=== PATIENT | female | born 2005 | race Asian ===

== ENCOUNTER 2025-03-19 11:58 | Inpatient (IN) | payer BC ==
[~2025-03-19] VITALS: Ht 157.5 cm; Wt 42.9 kg
[2025-03-19 16:27] VITALS: BP 102/69; PULSE 75; RESP 17; TEMP 98.6
[2025-03-19 20:42] VITALS: BP 102/69; PULSE 75; RESP 17; TEMP 98.6; O2SAT 97
[2025-03-20 08:46] VITALS: BP 98/66; PULSE 87; RESP 16; TEMP 98.2; O2SAT 100
[2025-03-20 09:37] LABS: ASPARTATE AMINOTRANSFERASE 22 U/L (15-37); CALCIUM, TOTAL 9.0 mg/dL (8.8-10.5); CHOL/HDL RATIO 2.4 (3.9-5.7); CREATININE 0.73 mg/dL (0.60-1.30); GLOMERULAR FILTR. RATE CALC > 60 mL/min (>60); GLUCOSE,RANDOM 87 mg/dL (70-110); HCG,QUANTITATIVE < 1 mIU/mL (0-6); LDL CHOL (CALC.) 52 mg/dL (0-130); SODIUM SERUM 139 mmol/L (136-145); TOTAL PROTEIN, SERUM 6.8 g/dL (6.4-8.2); UREA NITROGEN, BLOOD 14 mg/dL (7-18)
[2025-03-20] MEDS ORDERED: ALBUTEROL SULFATE HFA 90 MCG/PUFF 8 GM INHALER IH PRN (13:00)
[2025-03-20] MEDS ORDERED: ONDANSETRON 4 MG TABLET PO PRN (13:00)
[2025-03-20] MEDS ORDERED: NICOTINE 14 MG/24 HOUR PATCH TD PRN (13:00)
[2025-03-20] MEDS ORDERED: ACETAMINOPHEN 325 MG TABLET PO PRN (13:00)
[2025-03-20] MEDS ORDERED: LOPERAMIDE HCL 2 MG CAPSULE PO PRN (13:00)
[2025-03-20] MEDS ORDERED: PETROLATUM,WHITE 28 GM JELLY TP PRN (13:00)
[2025-03-20] MEDS ORDERED: MAGNESIUM HYDROXIDE SUSPENSION 30 ML UDCUP PO PRN (13:00)
[2025-03-20] MEDS ORDERED: MAG HYDROX/ALUMINUM HYD/SIMETH ES 30 ML SUSPENSION UDCUP PO PRN (13:00)
[2025-03-20] MEDS ORDERED: DOCUSATE SODIUM 100 MG CAPSULE PO PRN (13:00)
[2025-03-20] MEDS ORDERED: GuaiFENesin/D-METHORPHAN [SUGAR-FREE] 200-20MG/10 ML SYRUP UDCUP PO PRN (13:00)
[2025-03-20 20:11] VITALS: BP 103/79; PULSE 68; RESP 16; TEMP 98; O2SAT 100
[2025-03-21 08:32] VITALS: BP 101/72; PULSE 69; RESP 16; TEMP 97.1; O2SAT 99
[2025-03-21 09:06] LABS: PLATELET COUNT (AUTO) 277 K/uL (150-450); RED BLOOD CELL COUNT(AUTO) 4.65 MIL/uL (4.00-5.20); RED CELL DISTRIBUTION WIDTH 12.9 % (11.5-14.5); WHITE BLOOD COUNT (AUTO) 7.0 K/uL (4.5-11.0)
[2025-03-21 09:37] LABS: CHOL/HDL RATIO 2.4 (3.9-5.7); LDL CHOL (CALC.) 46.0 mg/dL (0-130)
[2025-03-21 20:07] VITALS: BP 109/68; PULSE 80; RESP 17; TEMP 98.1; O2SAT 99
[2025-03-21] MEDS: ZOLPIDEM TARTRATE 10 MG TABLET PO PRN (20:47)
[2025-03-22 08:32] VITALS: BP 94/62; PULSE 80; RESP 18; TEMP 98.8; O2SAT 98
[2025-03-22 21:30] VITALS: BP 104/70; PULSE 62; RESP 18; TEMP 97; O2SAT 100
[2025-03-23 08:09] VITALS: BP 93/67; PULSE 72; RESP 16; TEMP 97.7; O2SAT 100
[2025-03-23 20:12] VITALS: BP 108/79; PULSE 65; RESP 18; TEMP 98; O2SAT 99
[2025-03-24 08:54] VITALS: BP 95/68; PULSE 67; RESP 18; TEMP 98.2; O2SAT 99
[2025-03-24 20:05] VITALS: BP 117/84; PULSE 67; RESP 18; TEMP 98.4
[2025-03-25 08:09] VITALS: BP 99/80; PULSE 69; RESP 16; TEMP 98.1; O2SAT 99
[2025-03-25 20:20] VITALS: BP 103/83; PULSE 73; RESP 18; TEMP 97.6; O2SAT 100
[2025-03-26 08:43] VITALS: BP 107/68; PULSE 86; RESP 17; TEMP 98.6; O2SAT 97
[2025-03-26 20:10] VITALS: BP 104/81; PULSE 73; RESP 17; TEMP 98.2; O2SAT 97
[2025-03-27 08:58] VITALS: BP 96/68; PULSE 97; RESP 17; TEMP 98.4; O2SAT 98
[2025-03-27 20:09] VITALS: BP 95/66; PULSE 82; RESP 18; TEMP 98; O2SAT 100
[2025-03-28 08:31] VITALS: BP 102/65; PULSE 81; RESP 18; TEMP 98.1; O2SAT 99
[2025-03-28] MEDS: BACITRACIN 28 GM OINTMENT TP SCH (09:38)
[2025-03-28 10:19] VITALS: RESP 18; O2SAT 99
[2025-03-28] MEDS: IBUPROFEN 400 MG TABLET PO PRN (10:19)
[2025-03-28 11:19] VITALS: RESP 17; O2SAT 99
[2025-03-28] MEDS: LURASIDONE HCL 20 MG TABLET PO SCH (12:49)
[2025-03-28 20:06] VITALS: BP 103/68; PULSE 75; RESP 17; TEMP 97.7; O2SAT 99
[2025-03-29 08:09] VITALS: BP 98/61; PULSE 78; RESP 16; TEMP 97.7; O2SAT 100
[2025-03-29 20:11] VITALS: BP 101/73; PULSE 88; RESP 18; TEMP 98.2; O2SAT 100
[2025-03-30 08:02] VITALS: BP 95/60; PULSE 83; RESP 15; TEMP 98.4; O2SAT 99
[2025-03-30] MEDS: BACITRACIN 28 GM OINTMENT TP SCH (12:13)
[2025-03-30 20:09] VITALS: BP 107/79; PULSE 93; RESP 17; TEMP 97.9; O2SAT 98
[2025-03-31 09:17] VITALS: BP 117/81; PULSE 68; RESP 18; TEMP 98.5; O2SAT 96
[2025-03-31 12:41] VITALS: RESP 18; O2SAT 96
[2025-03-31 13:41] VITALS: RESP 17; O2SAT 96
[2025-03-31 20:13] VITALS: BP 101/64; PULSE 66; RESP 15; TEMP 98.1; O2SAT 98
[2025-04-01 08:25] VITALS: BP 103/70; PULSE 91; RESP 17; TEMP 98.2; O2SAT 99
[2025-04-01 09:52] VITALS: BP 112/81; PULSE 95; RESP 18; TEMP 98; O2SAT 99
[2025-04-01 10:52] VITALS: RESP 18; O2SAT 98
[2025-04-01] MEDS: LURASIDONE HCL 40 MG TABLET PO SCH (16:26)
== END 2025-04-02 04:33 | disposition short-term general hospital (02) | DRG 885 ==
LOC: B2S 15:56
PROVIDERS: ADMIT Psychiatry & Neurology Child & Adolescent Psychiatry; ATTEND Psychiatry & Neurology Child & Adolescent Psychiatry
PROC: GZ56ZZZ Individual Psychotherapy, Supportive (ICD-10-PCS; 2025-03-20)
PROC: GZ58ZZZ Individual Psychotherapy, Cognitive-Behavioral (ICD-10-PCS; 2025-03-20)
PROC: GZ52ZZZ Individual Psychotherapy, Cognitive (ICD-10-PCS; principal; 2025-03-22)
DX: F33.2 Major depressive disorder, recurrent severe without psychotic features (principal); E44.0 Moderate protein-calorie malnutrition; Z68.1 Body mass index [BMI] 19.9 or less, adult; G47.00 Insomnia, unspecified; F12.90 Cannabis use, unspecified, uncomplicated; L02.425 Furuncle of right lower limb; S90.425A Blister (nonthermal), left lesser toe(s), initial encounter; X58.XXXA Exposure to other specified factors, initial encounter; Y93.89 Activity, other specified; Z88.0 Allergy status to penicillin; Y92.89 Other specified places as the place of occurrence of the external cause; Y99.8 Other external cause status
CPT/HCPCS: 80053; 80061; 83036; 84436; 84443; 84702; 85025

== ENCOUNTER 2025-04-01 16:57 | Inpatient (IN) | payer BC ==
[~2025-04-01] VITALS: Ht 154.9 cm; Wt 44.1 kg
[2025-04-01] MEDS ORDERED: SODIUM CHLORIDE 0.9% 1,300 ML IV ONE (19:45)
[2025-04-01 20:03] LABS: PLATELET COUNT (AUTO) 277 K/uL (150-450); RED BLOOD CELL COUNT(AUTO) 4.16 MIL/uL (4.00-5.20); RED CELL DISTRIBUTION WIDTH 13.1 % (11.5-14.5); WHITE BLOOD COUNT (AUTO) 9.4 K/uL (4.5-11.0)
[2025-04-01 20:13] LABS: CALCIUM, TOTAL 8.9 mg/dL (8.8-10.5); CREATININE 0.90 mg/dL (0.60-1.30); GLOMERULAR FILTR. RATE CALC > 60 mL/min (>60); GLUCOSE,RANDOM 100 mg/dL (70-110); SODIUM SERUM 138 mmol/L (136-145); UREA NITROGEN, BLOOD 14 mg/dL (7-18)
[2025-04-01 20:24] LABS: HCG,QUANTITATIVE < 1 mIU/mL (0-6)
[2025-04-01 20:34] LABS: LACTIC ACID 0.8 mmol/L (0.4-2.0)
[2025-04-01] MEDS: VANCOMYCIN HCL 1 GM in DEXTROSE 5%-WATER 250 ML IV ONE (21:42)
[2025-04-01] MEDS: KETOROLAC TROMETHAMINE 30 MG/ML VIAL IVP ONE (23:32)
[2025-04-02 04:19] VITALS: BP 96/67; PULSE 70; RESP 17; TEMP 98.8; O2SAT 98
[2025-04-02 07:49] VITALS: BP 100/66; PULSE 60; RESP 17; TEMP 97.8; O2SAT 100
[2025-04-02] MEDS ORDERED: SODIUM CHLORIDE 0.9% 500 ML IV ONE (10:37)
[2025-04-02] MEDS: MORPHINE SULFATE 4 MG/ML SYRINGE IVP PRN ×3 (10:40→21:34)
[2025-04-02] MEDS ORDERED: MAGNESIUM HYDROXIDE SUSPENSION 30 ML UDCUP PO PRN (11:30)
[2025-04-02] MEDS ORDERED: BISACODYL 10 MG RECTAL RECTAL SUPPOSITORY PR PRN (11:30)
[2025-04-02] MEDS ORDERED: ZOLPIDEM TARTRATE 5 MG TABLET PO PRN (11:30)
[2025-04-02] MEDS ORDERED: ACETAMINOPHEN 325 MG TABLET PO PRN (11:30)
[2025-04-02] MEDS: HYDROCODONE/ACETAMINOPHEN 5-325 MG TABLET PO PRN (12:11)
[2025-04-02] MEDS: LURASIDONE HCL 20 MG TABLET PO SCH (12:12)
[2025-04-02] MEDS: VANCOMYCIN HCL 1.25 GM in DEXTROSE 5%-WATER 250 ML IV ONE (12:13)
[2025-04-02] MEDS: CETIRIZINE HCL 10 MG TABLET PO PRN (15:08)
[2025-04-02] MEDS: ONDANSETRON HCL 4 MG/2 ML VIAL IVP PRN (15:12)
[2025-04-02] MEDS: HEPARIN SODIUM,PORCINE 5,000 UNITS/ML VIAL SQ SCH (15:17)
[2025-04-02 15:46] VITALS: BP 105/78; PULSE 60; RESP 16; TEMP 98.1; O2SAT 100
[2025-04-02 19:21] VITALS: BP 105/70; PULSE 60; RESP 18; TEMP 97.9; O2SAT 97
[2025-04-02] MEDS ORDERED: 0.9% SODIUM CHLORIDE 10 ML SYRINGE IVP ONE (19:56)
[2025-04-02] MEDS ORDERED: SODIUM CHLORIDE 0.9% 100 ML ONE (19:56)
[2025-04-02] MEDS ORDERED: IOHEXOL 300 MG/ML 100 ML VIAL ONE (19:56)
[2025-04-02] MEDS: DOCUSATE SODIUM 100 MG CAPSULE PO SCH (21:00)
[2025-04-02 21:34] VITALS: BP 105/77; PULSE 60; RESP 18; TEMP 97.9; O2SAT 98
[2025-04-02] MEDS: VANCOMYCIN HCL 500 MG in DEXTROSE 5%-WATER 100 ML IV SCH (23:55)
[2025-04-03 05:26] VITALS: BP 110/61; PULSE 67; RESP 18; TEMP 98.1; O2SAT 100
[2025-04-03 07:00] VITALS: BP 97/57; PULSE 59; RESP 19; TEMP 98.1; O2SAT 100
[2025-04-03 07:26] LABS: CALCIUM, TOTAL 8.8 mg/dL (8.8-10.5); CREATININE 0.71 mg/dL (0.60-1.30); GLOMERULAR FILTR. RATE CALC > 60 mL/min (>60); GLUCOSE,RANDOM 93 mg/dL (70-110); SODIUM SERUM 139 mmol/L (136-145); UREA NITROGEN, BLOOD 9 mg/dL (7-18)
[2025-04-03] MEDS: PANTOPRAZOLE SODIUM 40 MG DR TABLET PO SCH (07:48)
[2025-04-03] MEDS ORDERED: NALOXONE HCL 1 MG/ML 2 ML SYRINGE IVP PRN (15:15)
[2025-04-03 15:55] VITALS: BP 109/67; PULSE 57; RESP 18; TEMP 97.5; O2SAT 96
[2025-04-03] MEDS: ACETAMINOPHEN 500 MG TABLET PO SCH (16:00)
[2025-04-03] MEDS: GABAPENTIN 100 MG CAPSULE PO SCH (16:00)
[2025-04-03] MEDS: LIDOCAINE 2% 6 ML JELLY TP SCH (16:19)
[2025-04-03] MEDS: CefTRIAXone 1 GM/DEXTROSE 50 ML IV SCH (16:30)
[2025-04-03 20:00] VITALS: BP 112/81; PULSE 65; RESP 18; TEMP 98.5; O2SAT 100
[2025-04-03] MEDS: MetroNIDAZOLE 500 MG/NACL 100 ML IV SCH (20:15)
[2025-04-03] MEDS: RINGERS SOLUTION,LACTATED 1,000 ML IV SCH (21:36)
[2025-04-04 04:00] VITALS: BP 103/67; PULSE 53; RESP 16; TEMP 97.7; O2SAT 97
[2025-04-04 06:40] LABS: CALCIUM, TOTAL 8.7 mg/dL (8.8-10.5); CREATININE 0.78 mg/dL (0.60-1.30); GLOMERULAR FILTR. RATE CALC > 60 mL/min (>60); GLUCOSE,RANDOM 98 mg/dL (70-110); SODIUM SERUM 140 mmol/L (136-145); UREA NITROGEN, BLOOD 10 mg/dL (7-18)
[2025-04-04 07:47] VITALS: BP 103/65; PULSE 58; RESP 18; TEMP 97.7; O2SAT 98
[2025-04-04] MEDS: LIDOCAINE 5% TRANSDERMAL PATCH TD SCH (09:27)
[2025-04-04 16:21] VITALS: BP 108/72; PULSE 60; RESP 18; TEMP 98.3; O2SAT 99
[2025-04-04] MEDS: VANCOMYCIN HCL 750 MG in DEXTROSE 5%-WATER 250 ML IV SCH (19:53)
[2025-04-04 20:00] VITALS: BP 103/81; PULSE 69; RESP 18; TEMP 98.2; O2SAT 99
[2025-04-04] MEDS: -LIDODERM PATCH NOTE- MISC SCH (20:04)
[2025-04-04 21:18] VITALS: BP 104/84; PULSE 54; RESP 16; TEMP 97.7; O2SAT 100
[2025-04-05 05:02] VITALS: BP 96/56; PULSE 66; RESP 17; TEMP 97.9; O2SAT 97
[2025-04-05 07:56] LABS: CALCIUM, TOTAL 8.7 mg/dL (8.8-10.5); CREATININE 0.71 mg/dL (0.60-1.30); GLOMERULAR FILTR. RATE CALC > 60 mL/min (>60); GLUCOSE,RANDOM 96 mg/dL (70-110); SODIUM SERUM 138 mmol/L (136-145); UREA NITROGEN, BLOOD 7 mg/dL (7-18)
[2025-04-05 08:00] VITALS: BP 96/61; PULSE 59; RESP 19; TEMP 98.1; O2SAT 99
[2025-04-05 08:42] VITALS: BP 98/71; PULSE 85; RESP 18; O2SAT 99
[2025-04-05] MEDS: OxyCODONE HCL/ACETAMINOPHEN 5-325 MG TABLET PO PRN (08:42)
[2025-04-05 15:07] VITALS: BP 111/78; PULSE 61; RESP 19; TEMP 98; O2SAT 99
[2025-04-05 17:30] VITALS: BP 117/67; PULSE 55; RESP 18; O2SAT 97
[2025-04-05 20:31] VITALS: BP 109/68; PULSE 65; RESP 18; TEMP 98.1; O2SAT 98
[2025-04-06] VITALS (7 sets, daily range): BP systolic 101–111; BP diastolic 65–77; PULSE 59–76; RESP 16–18; TEMP 98–98.3; O2SAT 98–100
[2025-04-06 06:42] LABS: CALCIUM, TOTAL 8.6 mg/dL (8.8-10.5); CREATININE 0.65 mg/dL (0.60-1.30); GLOMERULAR FILTR. RATE CALC > 60 mL/min (>60); GLUCOSE,RANDOM 92 mg/dL (70-110); SODIUM SERUM 140 mmol/L (136-145); UREA NITROGEN, BLOOD 7 mg/dL (7-18)
[2025-04-06] MEDS: RINGERS SOLUTION,LACTATED 500 ML IV ONE (08:32)
[2025-04-06] MEDS: CLINDAMYCIN 300 MG/D5% WATER 50 ML IV SCH (14:27)
[2025-04-07 07:51] LABS: CALCIUM, TOTAL 8.6 mg/dL (8.8-10.5); CREATININE 0.68 mg/dL (0.60-1.30); GLOMERULAR FILTR. RATE CALC > 60 mL/min (>60); GLUCOSE,RANDOM 102 mg/dL (70-110); SODIUM SERUM 139 mmol/L (136-145); UREA NITROGEN, BLOOD 5 mg/dL (7-18)
[2025-04-07 09:01] VITALS: BP 111/70; PULSE 78; RESP 20; TEMP 98.4; O2SAT 98
[2025-04-07 19:37] VITALS: BP 104/72; PULSE 63; RESP 18; TEMP 98; O2SAT 99
[2025-04-07 23:26] VITALS: BP 109/70; PULSE 69; RESP 19; TEMP 98.2; O2SAT 99
[2025-04-08 04:47] VITALS: BP 110/72; PULSE 56; RESP 18; TEMP 98.5; O2SAT 98
[2025-04-08 08:40] VITALS: BP 106/72; PULSE 56; RESP 18; TEMP 98.2; O2SAT 97
[2025-04-08 15:00] VITALS: BP 100/65; PULSE 97; RESP 19; TEMP 98.1; O2SAT 99
[2025-04-08 20:54] VITALS: BP 111/68; PULSE 83; RESP 18; TEMP 97.5; O2SAT 99
[2025-04-09 05:00] VITALS: BP 108/65; PULSE 79; RESP 17; TEMP 97.7; O2SAT 99
[2025-04-09 07:46] VITALS: BP 110/81; PULSE 80; RESP 17; TEMP 98.4; O2SAT 99
[2025-04-09] MEDS ORDERED: LIDO700A30 TD (14:01)
[2025-04-09] MEDS ORDERED: CLIN300C58 PO (14:01)
[2025-04-09] MEDS ORDERED: GABA-1216 PO (14:01)
[2025-04-09] MEDS ORDERED: ACET-3385 PO (14:01)
[2025-04-09] MEDS ORDERED: LURA20TA PO (14:01)
[2025-04-09] MEDS ORDERED: PERCT PO (14:01)
[2025-04-09 15:59] VITALS: BP 113/84; PULSE 58; RESP 17; TEMP 97.7; O2SAT 99
[2025-04-11] MEDS ORDERED: NALO4SPR22 NASAL (15:45)
== END 2025-04-09 20:00 | disposition home or self-care (01) | DRG 603 ==
LOC: EMS 16:57 → EDH 04-02 01:48 → 6S 04-02 04:00
PROVIDERS: ADMIT Hospitalist; ATTEND Hospitalist
PROC: GZ58ZZZ Individual Psychotherapy, Cognitive-Behavioral (ICD-10-PCS; principal; 2025-04-02)
PROC: GZ56ZZZ Individual Psychotherapy, Supportive (ICD-10-PCS; 2025-04-02)
DX: L03.115 Cellulitis of right lower limb (principal); E44.0 Moderate protein-calorie malnutrition; F31.4 Bipolar disorder, current episode depressed, severe, without psychotic features; Z68.1 Body mass index [BMI] 19.9 or less, adult; G47.00 Insomnia, unspecified; F12.90 Cannabis use, unspecified, uncomplicated; F29 Unspecified psychosis not due to a substance or known physiological condition; I10 Essential (primary) hypertension; L02.425 Furuncle of right lower limb; J30.89 Other allergic rhinitis; Z88.0 Allergy status to penicillin; Z79.899 Other long term (current) drug therapy
CPT/HCPCS: 73701; 80048; 80202; 83605; 84702; 85025; 87040; 87070; 87081; 87186; 87205; 93005; 96365; 96366; 96375; 99285; J0696; J1171; J1644; J1885; J2270; J2405; J3373; J3374; J3490; J7040; J7050; J7060; J7120; Q9967; 36415-L1; 36415-TC